=== PATIENT | male | born 1990 | race Caucasian/White ===

== ENCOUNTER 2021-02-28 22:50 | Emergency (ER) | payer OTHER ==
[2021-02-28 23:00] VITALS: BP 139/78; PULSE 78; TEMP 98; BMI 24.7
== END 2021-02-28 23:43 | disposition home or self-care (01) ==
LOC: FER 22:50
DX: S61.211A Laceration without foreign body of left index finger without damage to nail, initial encounter (principal); W26.0XXA Contact with knife, initial encounter; Y93.G1 Activity, food preparation and clean up
CPT/HCPCS: 99281-25